=== PATIENT | female | born 2000 | race Caucasian/White ===

== ENCOUNTER 2019-01-20 11:57 | Emergency (ER) | payer SELFPAY ==
--- NOTE | 2019-01-20 12:21 | EDM.PDOC ---
ED HPI GENERAL MEDICAL PROBLEM - General Chief Complaint: [employer] Problem Stated Complaint: PREG,DIZZY,LT BLEEDING,SOB Time Seen by Provider: 01/20/19 12:10 Source of Information: Reports: Patient, RN Notes Reviewed History Limitations: Reports: No Limitations - History of Present Illness INITIAL COMMENTS - FREE TEXT/NARRATIVE: 18-year-old female who is 1 para 0 presents to the hospital with some mild pink discharge per vagina this morning. Christine. Estimated be sometime in the last week of October. She was trying to conceive. Has not been on any form of control. She had some vomiting 2 days ago first thing in the morning and again the following morning but not today. By dates she would be approximately 8 weeks gestation. Patient has had for home (she test at a positive as well as a urine test positive at [facility]--fairly this is a state on clinic here within [place] run by nurses. Apparently an ultrasound done last week revealed no heartbeat but does not state whether there was an entry uterine . She has no low back pain or lower abdominal pain. No genitourinary complaints. Bowel function has been normal. No previous abdominal surgery. Onset: Today Onset Date: 01/20/19 (Slight pink discharge per vagina with wiping this morning. ) Duration: Hour(s): Location: Reports: Other (Slight pain discharge per vagina this morning after urinating.) Quality: Reports: Other (No pain.) Severity: Mild Improves with: Reports: None Worsens with: Reports: None Context: Reports: Other (Confirm by urine test 4.). Denies : Activity, Exercise, Lifting, Sick Contact, Trauma Associated Symptoms: Reports: No Other Symptoms Treatments [employer]: Reports: Other (see below) (None.) - Related Data Allergies Allergy/AdvReac Type Severity Reaction Status Date / Time No Known Allergies Allergy Verified 01/20/19 12:12 Home Meds: Home Meds . [No Known Home Meds] 01/20/19 [History] Past Medical History : 1 Para: 0 ED ROS GENERAL - Review of Systems Review Of Systems: See Below Constitutional: Reports: Fatigue. Denies: Fever, Chills, Malaise HEENT: Reports: No Symptoms Respiratory: Reports: No Symptoms Cardiovascular: Reports: No Symptoms Endocrine: Reports: Fatigue GI/Abdominal: Reports: No Symptoms : Reports: Frequency, Other (Passage of some mild pink blood per vagina this morning with wiping after voiding.) Musculoskeletal: Reports: No Symptoms Skin: Reports: No Symptoms Neurological: Reports: No Symptoms Psychiatric: Reports: No Symptoms Hematologic/Lymphatic: Reports: No Symptoms Immunologic: Reports: No Symptoms ED EXAM - Physical Exam Exam: See Below Exam Limited By: No Limitations General Appearance: Alert, WD/WN, No Apparent Distress Eye Exam: Bilateral Eye: Normal Inspection Head: Atraumatic, Normocephalic Neck: Normal Inspection, Supple, Non-Tender, Full Range of Motion. No: Lymphadenopathy (L), Lymphadenopathy (R) Respiratory/Chest: No Respiratory Distress, Lungs Clear, Normal Breath Sounds, No Accessory Muscle Use, Chest Non-Tender Cardiovascular: Normal Peripheral Pulses, Regular Rate, Rhythm, No Edema, No Gallop, No Murmur, No Rub GI/Abdominal Exam: Normal Bowel Sounds, Soft, Non-Tender, No Organomegaly, No Distention, No Abnormal Bruit, No Mass, Pelvis Stable (Female) Exam: Normal Bimanual Exam, Normal External Exam, Enlarged Uterus ( Cervix is closed. Feels about 6 weeks in size. Slightly retroverted.). No: Adnexal Mass (L), Adnexal Mass (R), Adnexal Tenderness, Cervical Dilatation Back Exam: Normal Inspection, Full Range of Motion. No: CVA Tenderness (L), CVA Tenderness (R) Extremities: Normal Inspection, Normal Range of Motion, Non-Tender, No Pedal Edema, Normal Capillary Refill Neurological: Alert, Oriented, CN II-XII Intact, Normal Cognition, Normal Gait Psychiatric: Normal Affect, Normal Mood Skin Exam: Warm, Dry, Intact, Normal Color, No Rash Course - Vital Signs Last Recorded V/S: Last Vital Signs Temp 37.0 C 01/20/19 12:22 Pulse 76 01/20/19 12:22 Resp 20 01/20/19 12:22 BP 127/59 L 01/20/19 12:22 Pulse Ox 100 01/20/19 12:22 - Orders/Labs/Meds Orders: Active Orders 24 hr Category Date Time Status Peripheral IV Care [RC] . DIRECTED Care 01/20/19 12:23 Active PATIENT RETYPE [BBK] Routine Lab 01/20/19 14:05 Ordered Peripheral IV Insertion Adult [OM.PC] Stat Oth 01/20/19 12:23 Ordered Labs: Laboratory Tests 01/20/19 01/20/19 01/20/19 Range/Units 13:07 13:07 13:07 WBC 4.96 (3.98-10.04) K/mm3 RBC 4.53 (3.98-5.22) M/mm3 Hgb 9.2 L (11.2-15.7) gm/dl Hct 32.0 L (34.1-44.9) % MCV 70.6 L (79.4-94.8) fl MCH 20.3 L (25.6-32.2) pg MCHC 28.8 L (32.2-35.5) g/dl RDW Std Deviation 46.2 (36.4-46.3) fL Plt Count 336 (182-369) K/mm3 MPV 10.4 (9.4-12.3) fl Neut % (Auto) 67.3 (34.0-71.1) % Lymph % (Auto) 23.6 (19.3-51.7) % [place] % (Auto) 8.5 (4.7-12.5) % Eos % (Auto) 0.4 L (0.7-5.8) Baso % (Auto) 0.2 (0.1-1.2) % Neut # (Auto) 3.34 (1.56-6.13) K/mm3 Lymph # (Auto) 1.17 L (1.18-3.74) K/mm3 [place] # (Auto) 0.42 H (0.24-0.36) K/mm3 Eos # (Auto) 0.02 L (0.04-0.36) K/mm3 Baso # (Auto) 0.01 (0.01-0.08) K/mm3 Manual Slide Review Abnormal smear Sodium 139 (136-145) mEq/L Potassium 3.7 (3.5-5.1) mEq/L Chloride 106 (98-107) mEq/L Carbon Dioxide 25 (21-32) mEq/L Anion Gap 11.7 (5-15) BUN 9 (7-18) mg/dL Creatinine 0.6 (0.55-1.02) mg/dL Est Cr Clr Drug Dosing 134.58 mL/min Estimated GFR (MDRD) > 60 (>60) mL/min BUN/Creatinine Ratio 15.0 (14-18) Glucose 98 (74-106) mg/dL Calcium 8.9 (8.5-10.1) mg/dL Total Bilirubin 0.4 (0.2-1.0) mg/dL AST 9 L (15-37) U/L ALT 19 (14-59) U/L Alkaline Phosphatase 45 L (46-116) U/L Total Protein 7.7 (6.4-8.2) g/dl Albumin 4.0 (3.4-5.0) g/dl Globulin 3.7 gm/dL Albumin/Globulin Ratio 1.1 (1-2) HCG, Quant 2200.0 mIU/mL Urine Color (Yellow) Urine Appearance (Clear) Urine pH (5.0-8.0) Ur Specific [place] (1.005-1.030) Urine Protein (Negative) Urine Glucose (UA) (Negative) Urine Ketones (Negative) Urine Occult Blood (Negative) Urine Nitrite (Negative) Urine Bilirubin (Negative) Urine Urobilinogen (0.2-1.0) Ur Leukocyte Esterase (Negative) Urine RBC (0-5) /hpf Urine WBC (0-5) /hpf Ur Squamous Epith Cells (0-5) /hpf Urine Bacteria (FEW) /hpf Urine Mucus (FEW) /hpf Blood Type O POSITIVE Gel Antibody Screen Negative 01/20/19 Range/Units 13:13 WBC (3.98-10.04) K/mm3 RBC (3.98-5.22) M/mm3 Hgb (11.2-15.7) gm/dl Hct (34.1-44.9) % MCV (79.4-94.8) fl MCH (25.6-32.2) pg MCHC (32.2-35.5) g/dl RDW Std Deviation (36.4-46.3) fL Plt Count (182-369) K/mm3 MPV (9.4-12.3) fl Neut % (Auto) (34.0-71.1) % Lymph % (Auto) (19.3-51.7) % [place] % (Auto) (4.7-12.5) % Eos % (Auto) (0.7-5.8) Baso % (Auto) (0.1-1.2) % Neut # (Auto) (1.56-6.13) K/mm3 Lymph # (Auto) (1.18-3.74) K/mm3 [place] # (Auto) (0.24-0.36) K/mm3 Eos # (Auto) (0.04-0.36) K/mm3 Baso # (Auto) (0.01-0.08) K/mm3 Manual Slide Review Sodium (136-145) mEq/L Potassium (3.5-5.1) mEq/L Chloride (98-107) mEq/L Carbon Dioxide (21-32) mEq/L Anion Gap (5-15) BUN (7-18) mg/dL Creatinine (0.55-1.02) mg/dL Est Cr Clr Drug Dosing mL/min Estimated GFR (MDRD) (>60) mL/min BUN/Creatinine Ratio (14-18) Glucose (74-106) mg/dL Calcium (8.5-10.1) mg/dL Total Bilirubin (0.2-1.0) mg/dL AST (15-37) U/L ALT (14-59) U/L Alkaline Phosphatase (46-116) U/L Total Protein (6.4-8.2) g/dl Albumin (3.4-5.0) g/dl Globulin gm/dL Albumin/Globulin Ratio (1-2) HCG, Quant mIU/mL Urine Color Yellow (Yellow) Urine Appearance Clear (Clear) Urine pH 6.0 (5.0-8.0) Ur Specific [place] 1.015 (1.005-1.030) Urine Protein Negative (Negative) Urine Glucose (UA) Negative (Negative) Urine Ketones Negative (Negative) Urine Occult Blood Negative (Negative) Urine Nitrite Negative (Negative) Urine Bilirubin Negative (Negative) Urine Urobilinogen 0.2 (0.2-1.0) Ur Leukocyte Esterase Negative (Negative) Urine RBC 0-5 (0-5) /hpf Urine WBC 0-5 (0-5) /hpf Ur Squamous Epith Cells 0-5 (0-5) /hpf Urine Bacteria Few (FEW) /hpf Urine Mucus Few (FEW) /hpf Blood Type Gel Antibody Screen Meds: Medications Discontinued Medications Generic Name Dose Route Start Last Admin Trade Name Freq PRN Reason Stop Dose Admin Sodium Chloride 10 ml 01/20/19 12:23 01/20/19 13:15 Saline Flush FLUSH 10 ml ASDIRECTED PRN Administration Keep Vein Open - Radiology Interpretation Free Text/Narrative:: 18-year-old female who is 1 para 0 presents to the ED with some passage of some mild light pink vaginal discharge this morning after voiding. She has not spotted during this . She estimates her last trimester. To be somewhere between the and 25 of November. She's been seen in an outpatient clinic called [facility] which I am unfamiliar with. Apparently it is a nonprofit facility presumably on by the state. They confirmed a positive urine test a week ago and performed an ultrasound. It's unclear whether they identified an intrauterine but commented there was no heart tones. By dates she would be 8 weeks . Exam reveals a benign abdomen. Fundus is not palpable abdominally. Bimanual exam reveals cervix to be closed uterus is slightly retroverted 6 weeks in size. No neck some masses or tenderness appreciated. No blood noted on gloved fingers. Plan patient will have routine labs performed as well as a quantitative beta-hCG and type and screen. Transvaginal ultrasound will be done to confirm intrauterine gestation. - Re-Assessments/Exams Free Text/Narrative Re-Assessment/Exam: 01/20/19 14:06 White count is 4.96. Auto differential shows 67.3% neutrophils. Hemoglobin is low at 9.2 with hematocrit of 32.0. MCV is 70.6. This suggests iron deficiency. Platelet count is 336,000. Smear shows microcytosis and hypochromasia compatible with iron deficiency. Sodium is 139 with potassium of 3.7. Chloride 106 with a bicarbonate 25. Anion gap is 11.7. BUN is 9 with a creatinine of 0.6. Estimated GFR is greater than 60. Glucose is 98 with a calcium of 8.9. Liver function is normal. Total protein is 7.7 with albumin fraction of 4.0. Quantitative hCG is 2200. Urinalysis completely normal. 01/20/19 14:08 transvaginal ultrasound is now back. It does reveal thickened endometrial lining with no gestational sac. Endometrial thickness is about 2.1 cm. Small amount of free fluid is seen within the cul-de-sac. Right ovary is unremarkable. Left ovary contains a slightly elongated simple cyst measuring 4 cm. therefore we have no evidence of an intrauterine in the possibility of an ectopic exists. This also could rigors represent a failing or very early . Discussed case with Dr. Rosenthal incident response lead [employer]. At this point time the patient is not exhibiting any signs or symptoms of an ectopic . She was discharged from the ED with plans to follow-up in the clinic on Wednesday at 10 AM with Eula Newton. She needs a repeat beta hCG to see if it is going down her up and possibly a repeat transvaginal ultrasound. Patient is been advised to return to the ED over the weekend if she developed sudden onset of severe pelvic pain. There is also the possibility of the is failed that she will go on to develop a heavier than normal period over the weekend. Departure - Departure Time of Disposition: 14:27 Disposition: Home, Self-Care 01 Condition: Fair Clinical Impression: First trimester - Discharge Information *PRESCRIPTION DRUG MONITORING PROGRAM REVIEWED*: Not Applicable *COPY OF PRESCRIPTION DRUG MONITORING REPORT IN PATIENT HEATHER: Not Applicable Instructions: First Trimester of , [id number], Warning Signs During , How a Baby Grows During Referrals: PCP,None [Primary Care Provider] - Forms: ED Department Discharge Additional Instructions: Evaluation in the emergency room today due to some spotting per vagina with pinkish discharge appreciated after voiding 1 this morning. No associated lower abdominal cramping pain. Pain she has been confirmed by complex she tests 3 since January 05 and also at [facility]. Examination today reveals the uterus to be about 4-5 weeks in size slightly retroverted. Cervix is closed. Ultrasound reveals no evidence of intrauterine . There is thickening of the lining of the uterus called the decidua at 2.1 cm. No signs of an ectopic or tubal were identified either. ID test done here is called a quantitative beta hCG which actually measures the amount of the hormone of in your bloodstream and it came out at 2200. This would correlate with a 2-3 week . Therefore at this time we cannot be sure that we are not looking at a very early and thus it is not showing up in the uterus as yet. It also could represent a failed and less likely a tubal or ectopic which means of occurring outside of the lining of the uterus. An appointment has been arranged for you to see Eula Newton at the [facility] clinic on the outside of the hospital at 10 AM on January 23. Please attend the clinic about 15 minutes earlier for paperwork processing. She will recheck your hormonal and possibly have to repeat a transvaginal ultrasound. If over the weekend he developed sudden onset of severe lower pelvic pain like a grenade going off in your tummy then you need to return immediately to the ED. Otherwise if the pain she has failed you may start to have a heavier than normal.. His lungs are are not soaking a pad per hour for 2 consecutive hours she don't have to return to the ED. - My Orders Last 24 Hours: My Active Orders 01/20/19 12:23 Peripheral IV Care [RC] . DIRECTED Peripheral IV Insertion Adult [OM.PC] Stat 01/20/19 14:05 PATIENT RETYPE [BBK] Routine - Assessment/Plan Last 24 Hours: My Active Orders 01/20/19 12:23 Peripheral IV Care [RC] . DIRECTED Peripheral IV Insertion Adult [OM.PC] Stat 01/20/19 14:05 PATIENT RETYPE [BBK] Routine
[2019-01-20] MEDS ORDERED: Sodium Chloride 0.9% 10 ML Syringe FLUSH PRN (12:23)
--- NOTE | 2019-01-20 13:52 | US ---
First trimester obstetrical ultrasound: Multiple real-time images were obtained transvaginally. Comparison: No previous study. Thickened endometrial lining is seen with no gestational sac. Endometrial thickness is about 2.1 cm. Small amount of free fluid is seen within the cul-de-sac. Right ovary is unremarkable. Left ovary contains a slightly elongated simple cyst measuring 4.0 cm. Impression: 1. Endometrial thickening up to 2.1 cm. 2. No intrauterine gestational sac is seen. 3. 4.0 cm simple cyst within the left ovary. 4. Small amount of free fluid within the cul-de-sac which is most likely physiologic. Diagnostic code #3
== END 2019-01-20 13:45 | disposition home or self-care (01) ==
LOC: JD.ED 11:57
DX: O20.9 Hemorrhage in early pregnancy, unspecified (principal)
CPT/HCPCS: 36415; 76817; 76817-26; 80053; 81001; 84702; 85025; 86850; 86900; 86901; 99284-25

== ENCOUNTER 2019-01-26 19:30 | Emergency (ER) | payer SELFPAY ==
[2019-01-26] MEDS ORDERED: Sodium Chloride 0.9% 10 ML Syringe FLUSH PRN (20:37)
--- NOTE | 2019-01-26 23:06 | EDM.PDOC ---
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 Salter is a very pleasant 18-year-old woman who is having difficulty with her first . She states that her LMP was in the last week of October; she has been told that it was likely 11/19/2018. Medical records indicate that she was seen in this ED on 01/20/2019 with a complaint at that time of a mild painless pink vaginal discharge. She had been seen at an outpatient clinic the week before, where an ultrasound found no heartbeat. Workup in the ED included a CBC, a CMP, a quantitative hCG, an ABO/Rh, a urinalysis, and a transvaginal ultrasound. The blood and urine tests were unremarkable,: Her blood type is B-positive. The pelvic ultrasound revealed a thickened endometrial lining with no gestational sac. Since no intrauterine could be confirmed, an ectopic was still a possibility. Her case was discussed with Dr. Rosenthal, who reasoned that because the patient was not showing any signs or symptoms of an ectopic , no immediate intervention was required. She was to follow-up with Eula Ramos NP on Wednesday , 01/23/2019 at 10 AM, at which time a repeat quantitative hCG and repeat pelvic ultrasound were to be performed. She was to return to the ED if she developed pelvic pain. The patient now returns to the ED stating that she developed vaginal bleeding yesterday, 01/25/2019. The blood was initially brown, then became like spotting. Today the bleeding is heavier, and she states there may have been some tissue. She is also complaining of some mild pain over her right SI joint today. She states that the pain is similar to when she has a menstrual period. She reports that she had some nausea and vomiting 2 days ago, but none since. No recent fever, chills, constipation, diarrhea, or urinary symptoms. The patient states that she did follow-up with Ms. Ramos, and that she was started on progesterone, which she is taking as prescribed, along with a vitamin and iron. The patient PCP is Eula Ramos NP. 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: : 1 Para: 0 Social & Family History - Tobacco Use Smoking Status *Q: Never Smoker - Caffeine Use Caffeine Use: Reports: Coffee - Alcohol Use Alcohol Use History: Yes Alcohol Use Frequency: Socially - Recreational Drug Use Recreational Drug Use: Yes Drug Use in Last 12 Months: Yes Recreational Drug Type: Reports: Marijuana/Hashish (laast smoked spring 2018) - Living Situation & Occupation Living situation: Reports: Single, with Significant Other (Boyfriend) 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 ED EXAM - Physical Exam Exam: See Below Exam Limited By: No Limitations General Appearance: Alert, WD/WN, No Apparent Distress Eye Exam: Bilateral Eye: EOMI, Normal Inspection Ears: Normal External Exam, Hearing Grossly Normal Nose: Normal Inspection Throat/Mouth: Normal Inspection, Normal Lips, Normal Voice, No Airway Compromise Head: Atraumatic, Normocephalic Neck: Normal Inspection, Full Range of Motion Respiratory/Chest: No Respiratory Distress, Lungs Clear, Normal Breath Sounds, No Accessory Muscle Use Cardiovascular: Normal Peripheral Pulses, Regular Rate, Rhythm, No Edema, No Gallop, No JVD, No Murmur, No Rub GI/Abdominal Exam: Normal Bowel Sounds, Soft, No Organomegaly, No Distention, No Abnormal Bruit, No Mass, Tender (Mild, across the lower half of the abdomen.) Rectal Exam: Deferred (Female) Exam: Normal External Exam, Other (Older appearing blood in the vagina, but no active bleeding from the cervix, and no vaginal lesions or leading seen elsewhere. The cervix is nulliparous and closed. No tissue seen in the cervix or the vagina.) Back Exam: Normal Inspection, Full Range of Motion. No: CVA Tenderness (L), CVA Tenderness (R) Extremities: Normal Inspection, Normal Range of Motion, No Pedal Edema, Normal Capillary Refill Neurological: Alert, Oriented, Normal Cognition, No Motor/Sensory Deficits Psychiatric: Normal Affect Skin Exam: Warm, Dry, Intact, Normal Color, No Rash Course - Vital Signs Last Recorded V/S: Last Vital Signs Temp 36.9 C 01/26/19 19:51 Pulse 68 01/26/19 23:45 Resp 16 01/26/19 19:51 BP 125/61 01/26/19 23:45 Pulse Ox 100 01/26/19 19:51 - Orders/Labs/Meds Orders: Active Orders 24 hr Category Date Time Status Peripheral IV Care [RC] . DIRECTED Care 01/26/19 20:37 Active OB Transvaginal [US] Stat Exams 01/26/19 20:37 Taken CULTURE URINE [RM] Stat Lab 01/26/19 21:57 Received Peripheral IV Insertion Adult [OM.PC] Routine Oth 01/26/19 20:37 Ordered Labs: Laboratory Tests 01/26/19 01/26/19 01/26/19 Range/Units 20:51 20:51 22:00 HCG, Quant 4882.0 mIU/mL Urine Color Red H (Yellow) Urine Appearance Turbid H (Clear) Urine pH 7.0 (5.0-8.0) Ur Specific [place] 1.020 (1.005-1.030) Urine Protein 3+ H (Negative) Urine Glucose (UA) Negative (Negative) Urine Ketones Trace H (Negative) Urine Occult Blood 3+ H (Negative) Urine Nitrite Positive H (Negative) Urine Bilirubin 1+ H (Negative) Urine Urobilinogen 1.0 (0.2-1.0) Ur Leukocyte Esterase Trace H (Negative) Urine RBC Too numerous to cnt H (0-5) /hpf Urine WBC 0-5 (0-5) /hpf Ur Squamous Epith Cells 0-5 (0-5) /hpf Urine Bacteria Few (FEW) /hpf Urine Mucus Not seen (FEW) /hpf Blood Type O POSITIVE Meds: Medications Discontinued Medications Generic Name Dose Route Start Last Admin Trade Name Freq PRN Reason Stop Dose Admin Sodium Chloride 10 ml 01/26/19 20:37 Saline Flush FLUSH ASDIRECTED PRN Keep Vein Open - Re-Assessments/Exams Free Text/Narrative Re-Assessment/Exam: 01/26/19 22:59 Due to my dealing with 2 separate traumas, by colleague Tracy Ross ordered a workup on my behalf. When I initially went to see the patient, she was over at ultrasound. I have now spoken with her and examined her. The patient's quantitative hCG is 4882. It was 3687 3 days ago, on 01/23/2019, and 2220 6 days ago, on 01/20/2019. Her blood type is O-Positive Her urinalysis is remarkable for 3+ occult blood with too numerous to count RBCs , trace leukocyte esterase with 0-5 WBCs, and nitrate positive with few bacteria. Results of the transvaginal ultrasound are still pending. The patient's urinalysis shows some sign of a UTI, but not sufficient to start treatment with an antibiotic. I have ordered a urine culture. 01/26/19 23:13 Transvaginal ultrasound is read by Shira as "Possibly a small intrauterine gestational sac. Correlate with the patient's beta-hCG levels." 01/26/19 23:[address] Bowers at 23:19. He agrees that the quantitative hCG should be climbing faster, but that does not mean that the patient does not have a viable . He recommended that the patient have repeat quantitative hCG this coming Wednesday morning, 01/30/2019, then see Eula Ramos later on Wednesday. She should have a quantitative hCG repeated twice a week, and she should have a repeat pelvic ultrasound in 11-14 days. He agreed that the patient should continue the progesterone that she was already prescribed. Dr. Bowers will endeavor to notify Dr. Rosenthal of the patient's case, tomorrow. 01/26/19 23:32 The above recommendations were discussed with the patient. I submitted a lab requisition for a quantitative hCG to be obtained Wednesday morning at 8 AM. The patient will need to make an appointment to see Ms. Ramos on Wednesday. Subsequent quantitative hCGs and pelvic ultrasound will be ordered by Ms. Ramos. The patient asked about what to do about her lower back pain. I informed her that she can take Tylenol, only. No ibuprofen or Midol. Departure - Departure Time of Disposition: 23:33 Disposition: Home, Self-Care 01 Condition: Good Clinical Impression: Threatened in first trimester - Discharge Information *PRESCRIPTION DRUG MONITORING PROGRAM REVIEWED*: Not Applicable *COPY OF PRESCRIPTION DRUG MONITORING REPORT IN PATIENT HEATHER: Not Applicable Instructions: Threatened Miscarriage, [id number] Referrals: Eula Ramos NP [Primary Care Provider] - Forms: ED Department Discharge Additional Instructions: You were seen in the emergency room for vaginal bleeding and right lower back pain, associated with early . Workup in the ER included blood work, a urinalysis, a urine culture, and a transvaginal ultrasound. Your quantitative hCG is going up, but not as fast as expected, therefore the outcome of this is not certain. Your urinalysis shows some signs of a UTI, but not enough to treat with an antibiotic. A sample of your urine has been sent for culture. Your blood type is O-positive. 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 Codey Bowers. He recommended that you have a repeat quantitative hCG drawn 01/30/2019, at 8 AM. A requisition for a lab draw has been sent. You are to call the office of your PCP, Eula Ramos NP, tomorrow morning, 01/27/2019, in order to make an appointment to see her this coming Wednesday , 01/30/2019. When you see Ms. Ramos on Wednesday, make sure that they check on your urine culture results from today. Dr. Bowers recommended that you continue to take the progesterone that you are already on. He recommended that you have a quantitative hCG drawn twice a week, and have a repeat pelvic ultrasound performed in 11-14 days. These subsequent tests will need to be ordered by Ismael Rachel. You may take Tylenol (only) for your lower back pain. Do not take ibuprofen or Midol. If any other problems, please do not hesitate to return to the ER. - My Orders Last 24 Hours: My Active Orders 01/26/19 21:57 CULTURE URINE [RM] Stat - Assessment/Plan Last 24 Hours: My Active Orders 01/26/19 21:57 CULTURE URINE [RM] Stat
--- NOTE | 2019-01-27 07:13 | US ---
First trimester obstetrical ultrasound: Multiple real-time images were obtained transvaginally. Comparison: Previous obstetrical ultrasound of 01/24/19. Findings: Very small cystic area is seen within the endometrial cavity. This is an interval change from prior study and uncertain if this represents small gestational sac or represents a pseudocyst gestational sac representing fluid. Small cyst noted within the left ovary measuring 2.4 cm which continues to decrease in size from previous exam. Right ovary is unremarkable. No free fluid is seen. Impression: 1. Small cystic area within the endometrial cavity. Uncertain if this is a real gestational sac as findings have decreased from previous exam. If patient has positive test, follow-up ultrasound could be considered in 11 days. Diagnostic code #3 I agree with preliminary report from reynal[facility], finalized on 01/27/19, 12:08 AM Central Time
== END 2019-01-26 23:47 | disposition home or self-care (01) ==
LOC: JD.ED 19:30
DX: O20.0 Threatened abortion (principal)
CPT/HCPCS: 36415; 76817; 76817-26; 81001; 84702; 86900; 86901; 87086; 87088; 87186; 99284-25

== ENCOUNTER 2019-01-27 07:01 | Emergency (ER) | payer SELFPAY ==
[2019-01-27] MEDS ORDERED: Cephalexin 500 MG Cap PO ONE (07:34)
[2019-01-27] MEDS ORDERED: Acetaminophen/HYDROcodone 325-5 MG Tab PO ONE (07:34)
--- NOTE | 2019-01-27 08:03 | EDM.PDOC ---
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 That would make her about 10 weeks gestation. She presents for the 3rd time with vaginal bleeding, pelvic cramping and lower abdominal pain. She was seen here on the and last night on the . She had transvaginal US done and labs. She was told to take tylenol last night but it did not help. The US last night showed a small cystic area within the endometrial cavity. Uncertain if this is a real gestational sac as findings have decreased from previous exam. If patient has positive test, follow up US could be considered in 11 days. Small cyst noted within the left ovary measuring 2.4cm which continues to decrease in size from previous exam. Her HCG on 01/20/19 was 2200, 01/23/19 was 3687 and last night it was 4,882. This has gone up slowly which does not make sense. She was told to follow up with Eula Ramos on Wednesday. She has no fever, chills, cough, chest pain or shortness of breath. She did have a headache but that is gone now. Onset: Gradual Duration: Day(s): Location: Reports: Abdomen, Pelvis Quality: Reports: Sharp Severity: Moderate Improves with: Reports: None Worsens with: Reports: None Associated Symptoms: Reports: No Other Symptoms Abdominal Pain Score (Numeric/FACES): 8 - Related Data Allergies Allergy/AdvReac Type Severity Reaction Status Date / Time No Known Allergies Allergy Verified 01/27/19 07:17 Home Meds: Home Meds Progesterone, Micronized [Progesterone] 200 mg VAG BID 01/26/19 [History] Cephalexin [Keflex] 500 mg PO BID #10 capsule 01/27/19 [Rx] Hydrocodone/Acetaminophen [Hydrocodon-Acetaminophen 5-325] 1 - 2 each PO Q6HR PRN #10 tablet 01/27/19 [Rx] Past Medical History - Past Health History Medical/Surgical History: Denies Medical/Surgical 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: Social & Family History - Tobacco Use Smoking Status *Q: Never Smoker Second Hand Smoke Exposure: No - Caffeine Use Caffeine Use: Reports: Coffee - Recreational Drug Use Recreational Drug Use: No - Living Situation & Occupation Living situation: Reports: Single, with Significant Other (Boyfriend) 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 ROS GENERAL - Review of Systems Review Of Systems: See Below Constitutional: Reports: No Symptoms HEENT: Reports: No Symptoms Respiratory: Reports: No Symptoms Cardiovascular: Reports: No Symptoms Endocrine: Reports: No Symptoms GI/Abdominal: Reports: Abdominal Pain : Reports: Other (Pelvic pain and vaginal bleeding) ED EXAM - Physical Exam Exam: See Below Exam Limited By: No Limitations General Appearance: Alert, No Apparent Distress Ears: Normal External Exam Nose: Normal Inspection Head: Atraumatic, Normocephalic Neck: Normal Inspection Respiratory/Chest: No Respiratory Distress, Lungs Clear, Normal Breath Sounds Cardiovascular: Regular Rate, Rhythm, No Edema, No Murmur GI/Abdominal Exam: Soft, No Organomegaly, No Mass, Tender (Moderate tenderness to the lower abdomen) Course - Vital Signs Last Recorded V/S: Last Vital Signs Temp 97.8 F 01/27/19 07:14 Pulse 92 01/27/19 07:14 Resp 14 01/27/19 07:14 BP 128/66 01/27/19 07:14 Pulse Ox 100 01/27/19 07:14 - Orders/Labs/Meds Meds: Medications Discontinued Medications Generic Name Dose Route Start Last Admin Trade Name Jason PRN Reason Stop Dose Admin Hydrocodone Bitart/Acetaminophen 2 tab 01/27/19 07:34 01/27/19 07:40 [place] 325-5 Mg PO 01/27/19 07:35 2 tab ONETIME ONE Administration Cephalexin 500 mg 01/27/19 07:34 01/27/19 07:40 Keflex PO 01/27/19 07:35 500 mg ONETIME ONE Administration - Re-Assessments/Exams Free Text/Narrative Re-Assessment/Exam: 01/27/19 08:04 I called micro and there is something growing in her urine culture. He cannot tell what yet. I will give her a dose of hydrocodone here and keflex and a prescription for more. 01/27/19 08:09 The patient did go to the bathroom and she passed some tissue that appears to be some placenta but no fetus. I will send this for path. I will have her follow up with Eula Ramos on Wednesday. Departure - Departure Time of Disposition: 08:10 Disposition: Home, Self-Care 01 Condition: Good Clinical Impression: Threatened in first trimester UTI (urinary tract infection) Qualifiers: Urinary tract infection type: site unspecified Hematuria presence: without hematuria Qualified Code(s): N39.0 - Urinary tract infection, site not specified - Discharge Information *PRESCRIPTION DRUG MONITORING PROGRAM REVIEWED*: No *COPY OF PRESCRIPTION DRUG MONITORING REPORT IN PATIENT HEATHER: No Prescriptions: Hydrocodone/Acetaminophen [Hydrocodon-Acetaminophen 5-325] 1 - 2 each PO Q6HR PRN #10 tablet PRN Reason: Pain Cephalexin [Keflex] 500 mg PO BID #10 capsule Referrals: Eula Ramos, HAND INSPECTOR [Primary Care Provider] - 3 Days Forms: ED Department Discharge, ED Return to Work/School Form Additional Instructions: Drink plenty of fluids. Take the keflex 2 times per day for 5 days. Take tylenol or motrin for pain. If that does not help, try the hydrocodone. Take 1 to 2 pills every 6 hours as needed for pain. Follow up with Eula Ramos on Wednesday at 11:15 am. Please return if you are worse such as more pain or more bleeding where you are soaking more then 1 pad per hour.
== END 2019-01-27 08:30 | disposition home or self-care (01) ==
LOC: JD.ED 07:01
DX: O20.0 Threatened abortion (principal); O23.41 Unspecified infection of urinary tract in pregnancy, first trimester; Z3A.10 10 weeks gestation of pregnancy
CPT/HCPCS: 99283; A9270

== ENCOUNTER 2023-04-13 11:06 | Emergency (ER) | payer MEDICAID, OTHER ==
[2023-04-13] MEDS ORDERED: Acetaminophen 325 MG Tab PO ONE (11:29)
== END 2023-04-13 13:40 | disposition home or self-care (01) ==
LOC: JD.ED 11:06
DX: O9A.211 Injury, poisoning and certain other consequences of external causes complicating pregnancy, first trimester (principal); S39.012A Strain of muscle, fascia and tendon of lower back, initial encounter; Z79.899 Other long term (current) drug therapy; Z3A.01 Less than 8 weeks gestation of pregnancy; X50.1XXA Overexertion from prolonged static or awkward postures, initial encounter
CPT/HCPCS: 36415; 84702; 99283; A9270

== ENCOUNTER 2023-12-02 16:07 | Inpatient (IN) | payer MEDICAID ==
[2023-12-02] MEDS ORDERED: Sodium Chloride 0.9% 10 ML Syringe FLUSH PRN (16:14)
[2023-12-02 16:37] LABS: BASOPHILS PERCENT AUTO 0.1 % (0.0-1.0); EOSINOPHILS ABSOLUTE AUTO 0.1 K/mm3 (0.0-0.4); EOSINOPHILS PERCENT AUTO 0.6 % (0.0-6.0); HEMATOCRIT 37.6 % (37.0-47.0); HEMOGLOBIN 12.5 gm/dl (12.0-16.0); IMMATURE GRAN ABSOLUTE AUTO 0.04 K/mm3 (0.00-0.05); IMMATURE GRAN PERCENT AUTO 0.5 % (0.0-0.4); LYMPHOCYTES ABSOLUTE AUTO 1.5 K/mm3 (1.0-4.8); LYMPHOCYTES PERCENT AUTO 17.8 % (24.0-44.0); MEAN CORPUSCULAR HEMOGLOBIN 30.6 pg (28.0-32.0); MEAN CORPUSCULAR HGB CONC 33.2 g/dl (32.0-36.0); MEAN CORPUSCULAR VOLUME 91.9 fl (83.0-99.0); MEAN PLATELET VOLUME 11.8 fl (9.4-12.3); MONOCYTES ABSOLUTE AUTO 0.4 K/mm3 (0.0-0.8); MONOCYTES PERCENT AUTO 5.1 % (0.0-8.0); NEUTROPHILS ABSOLUTE AUTO 6.2 K/mm3 (1.8-7.7); NEUTROPHILS PERCENT AUTO 75.9 % (41.0-71.0); PLATELET COUNT,PLT 158 K/mm3 (150-400); RED BLOOD CELL COUNT 4.09 M/mm3 (4.10-5.30)
[2023-12-02 16:56] LABS: CREATININE 0.6 mg/dL (0.55-1.02); EST CRCL DRUG DOSING (CG) 134.18 mL/min; URIC ACID 4.3 mg/dL (2.6-6.0)
[2023-12-02 17:05] LABS: CREATININE,URINE RAND < 13.0 mg/dL (30.0-125.0); PROTEIN,URINE RANDOM < 6.0 mg/dL (0.0-11.8)
[2023-12-02] MEDS: Oxytocin/0.9 % Sodium Chloride 30 UNIT/500 ML BAG IV SCH (17:36)
[2023-12-02] MEDS: Lactated Ringers 1,000 ML IV SCH (17:36)
[2023-12-02] MEDS ORDERED: Sodium Chloride 0.9% 10 ML Syringe FLUSH SCH (21:00)
[2023-12-03] MEDS ORDERED: Docusate Sodium 100 MG Cap PO PRN (02:42)
[2023-12-03] MEDS: Ibuprofen 600 MG Tab PO SCH ×2 (02:53→08:31)
[2023-12-03] MEDS: Witch Hazel Medicated Pads 40/Jar TOP PRN (02:54)
[2023-12-03] MEDS: Benzocaine/Menthol 20%-0.5% Spray 78 GM Cannister TOP PRN (02:54)
[2023-12-03] MEDS: Lidocaine 1% 50 ML MDV INJECT PRN (02:58)
[2023-12-04] MEDS: Acetaminophen 325 MG Tab PO PRN (00:53)
[2023-12-04] MEDS: Measles, Mumps & Rubella Vaccine 0.5 ML SDV SUBCUT ONE (10:22)
== END 2023-12-04 12:50 | disposition home or self-care (01) | DRG 807 ==
LOC: JD.OBCHECK 16:07 → JD.OB 16:10 → JD.OBCHECK 16:21 → OBSVTOIN 12-03 01:36 → JD.OB 12-03 01:38
PROVIDERS: ADMIT Obstetrics & Gynecology; ATTEND Obstetrics & Gynecology
PROC: 10E0XZZ Delivery of Products of Conception, External Approach (ICD-10-PCS; principal; 2023-12-03)
PROC: 10907ZC Drainage of Amniotic Fluid, Therapeutic from Products of Conception, Via Natural or Artificial Opening (ICD-10-PCS; 2023-12-03)
PROC: 3E033VJ Introduction of Other Hormone into Peripheral Vein, Percutaneous Approach (ICD-10-PCS; 2023-12-03)
PROC: 0U7C7ZZ Dilation of Cervix, Via Natural or Artificial Opening (ICD-10-PCS; 2023-12-03)
PROC: 0HQ9XZZ Repair Perineum Skin, External Approach (ICD-10-PCS; 2023-12-03)
PROC: 3E0234Z Introduction of Serum, Toxoid and Vaccine into Muscle, Percutaneous Approach (ICD-10-PCS; 2023-12-03)
DX: O14.04 Mild to moderate pre-eclampsia, complicating childbirth (principal); Z37.0 Single live birth; O70.0 First degree perineal laceration during delivery; Z23 Encounter for immunization; Z3A.38 38 weeks gestation of pregnancy
CPT/HCPCS: 36415; 59025; 59409; 82565; 82570; 83615; 84156; 84450; 84460; 84520; 84550; 85025; 86592; 90471; 90707; A9270-GY; C1726; J2001; J7120; J7999

== ENCOUNTER 2023-12-07 21:34 | Emergency (ER) | payer MEDICAID ==
[2023-12-07] MEDS: Lidocaine 2% 11 ML Jelly Filled Syringe MUCMEM ONE (22:29)
== END 2023-12-07 22:46 | disposition home or self-care (01) ==
LOC: JD.ED 21:34
DX: N89.8 Other specified noninflammatory disorders of vagina (principal); Z79.899 Other long term (current) drug therapy
CPT/HCPCS: 99283; A9270; 99282